=== PATIENT | male | born 1965 | race Caucasian/White ===

== ENCOUNTER 2021-09-30 08:05 | Emergency (ER) | payer BC, SELFPAY ==
[2021-09-30] MEDS ORDERED: Sodium Chloride 0.9% 1,000 ML ONE (08:37)
[2021-09-30] MEDS ORDERED: Ketorolac Tromethamine 30 MG/ML VIAL ONE (08:37)
[2021-09-30 08:46] LABS: Bilirubin Negative (Negative); Blood, Urine Large (Negative); Clarity Clear (Clear); Glucose, Urine (Dipstick) Negative (Negative); Ketone, Urine Negative (Negative); Leukocyte Negative (Negative); Nitrite Negative (Negative); Protein, Urine (Dipstick) Trace mg/dL (Neg-Trace); Urobilinogen 0.2 mg/dL (Less than 2); pH, Urine 5.5 (5.0-9.0)
[2021-09-30 09:02] LABS: Specific Gravity, Urine 1.031 (1.002-1.036)
[2021-09-30 09:03] LABS: #Basophils 0.1 thou/uL (0.0-0.2); #Eosinphils 0.1 thou/uL (0.0-0.7); #Lymphocytes 1.8 thou/uL (1.20-3.40); #Monocytes 0.5 thou/uL (0.11-0.59); #Neutrophils 8.3 thou/uL (1.40-6.50); %Basophils 1.4 % (0.0-1.0); %Eosinophils 0.6 % (0.0-10.0); %Lymphocytes 16.5 % (21.0-51.0); %Monocytes 4.7 % (0.0-10.0); %Neutrophils 76.8 % (42.0-75.0); Hemoglobin 16.1 g/dL (14.0-18.0); Mean Corpuscular HGB CONC 34.4 g/dL (32.0-36.0); Mean Corpuscular Hemoglobin 30.2 pg (27.0-31.0); Mean Corpuscular Volume 87.7 fL (78.0-98.0); Mean Platelet Volume 7.3 fL (7.4-10.4); Platelet Count 326 thou/uL (130-400); RBC Distribution Width 10.6 % (11.5-14.5); Red Blood Cell (RBC) Count 5.33 mill/uL (4.70-6.10); White Blood Cell (WBC) Count 10.8 thou/uL (4.8-10.8)
[2021-09-30 09:06] LABS: Bacteria/HPF Rare-Few HPF (None Seen); Squamous Epithelial None Seen HPF (0-3)
[2021-09-30 09:55] LABS: Anion Gap 13 mmol/L (10-20); BUN (Urea Nitrogen) 16 mg/dL (8.4-25.7); Calc. Creatinine Clearance 0 mL/min (70-130); Carbon Dioxide 25 mmol/L (22-29); Chloride 107 mmol/L (98-107); Potassium 4.2 mmol/L (3.5-5.1); Sodium 141 mmol/L (136-145)
[2021-09-30 09:56] LABS: Calcium 8.9 mg/dL (7.8-10.44); Glucose 102 mg/dL (70-105)
== END 2021-09-30 11:00 | disposition home or self-care (01) ==
LOC: NAV ERS 08:05
DX: N23 Unspecified renal colic (principal)
CPT/HCPCS: 74176; 80048; 81003; 81015; 85025; 96374; J1885; J7050